=== PATIENT | male | born 1995 | race African-American/Black ===

== ENCOUNTER → 2017-05-06 01:09 | Emergency (ER) | payer OTHER ==
[~2017-05-06 01:09] MED LIST: Cephalexin CAP* 500 MG PO ONE
[2017-05-06 06:15] VITALS: BP 128/71
--- NOTE | 2017-05-07 00:42 | ED ---
Vernon Travis Angela, scribed for Milli Ag MD on 05/06/17 at 0249 . Laceration/Wound HPI - HPI Summary HPI Summary: This pt is a 22 y/o accompanied by his friend presenting to [facility] c/o laceration to his left eyebrow s/p hitting his head against a wall. Pt reports he slipped and hit his head 3 hours [employer]. He denies LOC but states he had some vomiting. Pt denies chest pain, SOB, LE swelling, blurry vision. Pt denies any PMHx. He is a student studying [employer]. - History of Current Complaint Stated Complaint: EYE LAC Time Seen by Provider: 05/06/17 02:30 Hx Obtained From: Patient Mechanism of Injury: Sharp/Blunt Trauma Onset/Duration: Lasting Hours Timing: Constant Pain Intensity: 0 Related Hx: Recent Trauma - hit head against a wall - Allergy/Home Medications Allergies/Adverse Reactions: Allergies Allergy/AdvReac Type Severity Reaction Status Date / Time Dust Mite Extract Allergy Eyes Verified 05/06/17 01:14 Itchy/Swollen/Red/Watery PMH/Surg Hx/FS Hx/Imm Hx Endocrine/Hematology History: Denies: Hx Diabetes Cardiovascular History: Denies: Hx Hypertension - Immunization History Immunizations Up to Date: Yes Infectious Disease History: No Infectious Disease History: Denies: Traveled Outside the [place] in Last 30 Days - Family History Known Family History: Negative: Respiratory Disease - Social History Occupation: Student - studying [employer] Alcohol Use: None Substance Use Type: Reports: None Smoking Status (MU): Never Smoked Tobacco Review of Systems Negative: Fever, Chills Negative: Blurred Vision Negative: Chest Pain Negative: Shortness Of Breath Positive: Vomiting, Nausea Negative: Edema Positive: Other - laceration to his left eyebrow Negative: Headache, Weakness, Numbness All Other Systems Reviewed And Are Negative: Yes Physical Exam Triage Information Reviewed: Yes Vital Signs On Initial Exam: Initial Vitals Temp Pulse Resp BP Pulse Ox 98.2 F 71 16 139/70 100 05/06/17 01:11 05/06/17 01:11 05/06/17 01:11 05/06/17 01:11 05/06/17 01:11 Vital Signs Reviewed: Yes Appearance: Positive: Well-Appearing, Well-Nourished Skin: Positive: Warm, Skin Color Reflects Adequate Perfusion, Dry Head/Face: Positive: Other - laceration on left eyebrow Eyes: Positive: Normal ENT: Positive: Normal ENT inspection Neck: Positive: Supple, Nontender Respiratory/Lung Sounds: Positive: Clear to Auscultation, Breath Sounds Present Cardiovascular: Positive: Normal, RRR Abdomen Description: Positive: Nontender, Soft Musculoskeletal: Positive: Normal Neurological: Positive: Normal, Sensory/Motor Intact, Alert, Oriented to Person Place, Time Psychiatric: Positive: Normal - Miguel A Coma Scale Coma Scale Total: 15 Procedures - Laceration/Wound Repair 1 Location: head Anesthesia: 1.0%, Epi Length, Depth and Shape: 4 deep sutures and 4 superficial sutures. Diagnostics - Vital Signs Vital Signs Temp Pulse Resp BP Pulse Ox 05/06/17 01:11 98.2 F 71 16 139/70 100 - Laboratory Lab Statement: Any lab studies that have been ordered have been reviewed, and results considered in the medical decision making process. Laceration Repair Course/Dx - Course Assessment/Plan: Pt is a 22 y/o male who present with laceration to his left eyebrow s/p hitting his head against a wall. I performed a laceratior repair with 4 deep sutures and 4 superficial sutures on his left eyebrow. Pt will be discharged with Keflex. He is instructed to return to the ED in 1 week for suture removal. He is advised to return to the ED for any evidence of infection. - Clinical Impression Provider Diagnoses: Laceration repair Discharge - Discharge Plan Condition: Stable Disposition: HOME Prescriptions: Cephalexin CAP* [Keflex CAP*] 500 mg PO TID #21 cap Forms: *School Release Referrals: [facility] - Otoniel SEBASTIAN [Primary Care Provider] - Additional Instructions: return in 1 week for suture removal. take the antibiotic keflex as instructed, 3 times daily for 7 days. return if any evidence of infection as we discussed. tylenol and motrin for pain The documentation as recorded by the Vernon santoyo Angela accurately reflects the service I personally performed and the decisions made by , Milli Ag MD.
== END | disposition home or self-care (01) ==
LOC: ED 01:09
DX: S01.112A Laceration without foreign body of left eyelid and periocular area, initial encounter (principal); R11.2 Nausea with vomiting, unspecified; W22.01XA Walked into wall, initial encounter; Y93.9 Activity, unspecified; Y92.9 Unspecified place or not applicable
CPT/HCPCS: 12001; 99282; A9270-GY